=== PATIENT | female | born 1995 | race African-American/Black ===

== ENCOUNTER 2022-08-24 18:48 | Inpatient (IN) ==
[2022-08-24 20:51] LABS: ABS Basophils 0.1 10^3/uL (0.0-0.1); ABS Eosinophils 0.1 10^3/uL (0.0-0.5); ABS Lymphocytes 3.1 10^3/uL (1.0-4.8); ABS Monocytes 0.5 10^3/uL (0.0-0.9); ABS Nucleated RBC 0.01 10^3/ul; Eosinophil % 0.8 %; Hematocrit 36.4 % (35-45); Hemoglobin 12.2 g/dL (11.5-14.3); Lymphocyte % 32.2 %; Mean Corpuscular Hemoglobin 26.7 pg (27-33); Mean Corpuscular Hgb Conc 33.5 g/dL (31-36); Mean Corpuscular Volume 79.7 fL (80-97); Mean Platelet Volume 7.5 fL (7.5-11.2); Nucleated Red Blood Cells % 0.1 /100 WBC (0.0-0.4); Platelet Count 324 10^3/uL (150-450); Red Blood Count 4.56 10^6/uL (3.63-4.92); Red Cell Distribution Width 17.2 % (12-17); White Blood Count 9.7 10^3/uL (3.8-11.8)
[2022-08-24 21:08] LABS: ALT 7 U/L (7-52); AST 10 U/L (13-39); Albumin 3.8 g/dL (3.2-5.2); Albumin/Globulin Ratio 1.1 (1-3); Alkaline Phosphatase 67 U/L (35-149); Anion Gap 6 mmol/L (2-16); Blood Urea Nitrogen 7 mg/dL (6-24); CO2 Carbon Dioxide 27 mmol/L (22-32); Calcium 9.3 mg/dL (8.6-10.3); Chloride 104 mmol/L (101-111); Creatinine, Serum 0.59 mg/dL (0.51-0.95); Globulin 3.4 g/dL (2-4); Glucose 100 mg/dL (70-100); Sodium 137 mmol/L (135-145); Total Protein 7.2 g/dL (6.4-8.9); eGFR CKD-EPI 126.6 (>60)
[2022-08-24 21:27] LABS: Acetaminophen < 15 mcg/mL; Alcohol, S < 13 mg/dL (<13); Salicylate < 2.50 mg/dL (<30)
[2022-08-24 21:41] LABS: Urine Appearance Cloudy; Urine Bilirubin Negative (Negative); Urine Blood Negative (Negative); Urine Color Yellow; Urine Glucose Negative (Negative); Urine Ketones Negative (Negative); Urine Nitrite Negative (Negative); Urine Protein Negative (Negative); Urine Specific Gravity 1.018 (1.002-1.030); Urine Urobilinogen Negative (Negative)
[2022-08-24 21:41] LABS: TSH Ultra Thyroid Stim Horm 3.46 mcIU/mL (0.34-5.60)
[2022-08-24 21:44] LABS: Urine Bacteria Absent (Absent); Urine Red Blood Cell Absent (Absent); Urine Squamous Epithelial Cell Present (Absent); Urine White Blood Cell 3+(>20/hpf) (Absent)
[2022-08-24 22:00] LABS: Urine Benzodiazepine Screen None Detected (None Detect); Urine Cannabinoids Screen Presumptive Positive (None Detect); Urine Opiates Screen None Detected (None Detect)
[2022-08-25 00:53] LABS: HCG Pregnancy 0.72 mIU/mL
[2022-08-25] MEDS ORDERED: Al Hydrox/Mg Hydrox/Simet LIQ 30 ML UDC PO PRN (00:55)
[2022-08-25] MEDS: Vitamin THERAPEUTIC TAB PO SCH (09:39)
[2022-08-26] MEDS: Vitamin THERAPEUTIC TAB PO SCH (09:42)
[2022-08-27] MEDS: Vitamin THERAPEUTIC TAB PO SCH (07:23)
[2022-08-28] MEDS: Vitamin THERAPEUTIC TAB PO SCH (08:29)
[2022-08-29 07:41] VITALS: BP 128/60
[2022-08-29] MEDS: Vitamin THERAPEUTIC TAB PO SCH (09:27)
[2022-08-30] MEDS: Vitamin THERAPEUTIC TAB PO SCH (08:36)
== END 2022-08-30 09:26 | DRG 776 ==
LOC: ED 18:48 → EDHOLD 08-25 00:15 → BSU 08-25 00:26
PROVIDERS: ADMIT Psychiatry & Neurology Psychiatry; ATTEND Psychiatry & Neurology Psychiatry

== ENCOUNTER 2023-06-11 12:42 | Inpatient (IN) ==
[2023-06-11 14:32] LABS: ABS Lymphocytes 1.8 10^3/uL (1.0-4.8); ABS Monocytes 0.7 10^3/uL (0.0-0.9); ABS Neutrophils 11.7 10^3/uL (1.5-7.6); Eosinophil % 0.1 %; Hematocrit 38.6 % (35-45); Hemoglobin 12.9 g/dL (11.5-14.3); Lymphocyte % 12.4 %; Mean Corpuscular Hemoglobin 27.8 pg (27-33); Mean Corpuscular Hgb Conc 33.5 g/dL (31-36); Mean Corpuscular Volume 82.8 fL (80-97); Mean Platelet Volume 7.7 fL (7.5-11.2); Platelet Count 447 10^3/uL (150-450); Red Blood Count 4.66 10^6/uL (3.63-4.92); Red Cell Distribution Width 15.5 % (12-17); White Blood Count 14.2 10^3/uL (3.8-11.8)
[2023-06-11 15:37] LABS: ALT 16 U/L (7-52); AST 21 U/L (13-39); Acetaminophen < 15 mcg/mL; Albumin 4.3 g/dL (3.2-5.2); Albumin/Globulin Ratio 1.4 (1-3); Alcohol, S < 13 mg/dL (<13); Alkaline Phosphatase 77 U/L (35-149); Anion Gap 10 mmol/L (2-16); Blood Urea Nitrogen 5 mg/dL (6-24); CO2 Carbon Dioxide 24 mmol/L (22-32); Calcium 9.5 mg/dL (8.6-10.3); Chloride 103 mmol/L (101-111); Creatine Kinase 219 U/L (10-223); Creatinine, Serum 0.67 mg/dL (0.51-0.95); Globulin 3.1 g/dL (2-4); Glucose 108 mg/dL (70-100); Potassium 3.5 mmol/L (3.5-5.0); Salicylate < 2.50 mg/dL (<30); Sodium 137 mmol/L (135-145); Total Bilirubin 0.4 mg/dL (0.2-1.0); Total Protein 7.4 g/dL (6.4-8.9)
[2023-06-11 15:42] LABS: HCG Pregnancy < 0.60 mIU/mL
[2023-06-11 16:42] LABS: Urine Appearance Turbid; Urine Bilirubin Negative (Negative); Urine Blood 2+ (Negative); Urine Color Yellow; Urine Glucose Negative (Negative); Urine Ketones 1+ (Negative); Urine Nitrite Negative (Negative); Urine Protein 2+ (>=100 mg/dL) (Negative); Urine Specific Gravity 1.016 (1.002-1.030); Urine Urobilinogen Negative (Negative)
[2023-06-11 16:44] LABS: Urine Bacteria Absent /HPF (Absent); Urine Red Blood Cell 3+(>10/hpf) /HPF (0-Trace); Urine Squamous Epithelial Cell Present /HPF (Absent); Urine White Blood Cell 3+(>20/hpf) /HPF (0-Trace)
[2023-06-11 16:59] LABS: Urine Benzodiazepine Screen None Detected (None Detect); Urine Cannabinoids Screen Presumptive Positive (None Detect); Urine Opiates Screen None Detected (None Detect)
[2023-06-11] MEDS ORDERED: Haloperidol 5 mg/ml SDV IV/IM 5 MG/ML AMP IM PRN (20:20)
[2023-06-11] MEDS ORDERED: LORazepam 2 mg VIAL 1 ml IM PRN (20:21)
[2023-06-11] MEDS ORDERED: Lorazepam PYXIS KEY PRN (20:21)
[2023-06-12] MEDS: Vitamin THERAPEUTIC TAB PO SCH (07:34)
[2023-06-12 08:14] LABS: HDL Cholesterol 42.8 mg/dL
[2023-06-13] MEDS: Ondansetron ODT 4 mg TAB 4 MG TAB SL PRN (15:35)
[2023-06-13] MEDS: OLANZapine 10 mg TAB*ODT PO SCH (21:17)
[2023-06-14] MEDS: Witch Hazel PAD JAR TOPICAL SCH (12:44)
[2023-06-14] MEDS: Al Hydrox/Mg Hydrox/Simet LIQ 30 ML UDC PO PRN (18:20)
[2023-06-16] MEDS: OLANZapine 5 mg TAB *ODT PO SCH (21:01)
[2023-06-17] MEDS: Nicotine Lozenge mini 4 MG LOZNG.MINI MT PRN (20:18)
[2023-06-21] MEDS: BENZOCAINE/MENTHOL (ORAJEL)20% 1 APPLIC TOP.GEL TOPICAL PRN (11:15)
[2023-06-21] MEDS ORDERED: Witch Hazel PAD JAR TOPICAL PRN (12:25)
[2023-06-23] MEDS: Albuterol HFA INHALER 8 gm MDI INH PRN (08:44)
[2023-06-23] MEDS: BENZOCAINE/MENTHOL (ORAJEL)20% 1 APPLIC TOP.GEL TOPICAL PRN (16:15)
[2023-06-24 08:14] VITALS: BP 153/77
== END 2023-06-24 11:45 | disposition home or self-care (01) | DRG 776 ==
LOC: ED 12:42 → EDHOLD 20:04 → BSU 20:15
PROVIDERS: ADMIT Psychiatry & Neurology Psychiatry; ATTEND Student in an Organized Health Care Education/Training Program